=== PATIENT | male | born 1955 | race Caucasian/White ===

== ENCOUNTER 2020-03-12 22:42 | Emergency (ER) | payer OTHER, BC ==
[~2020-03-12] VITALS: Ht 180.3 cm; Wt 80.7 kg
[2020-03-12 23:09] LABS: URINE BILIRUBIN NEGATIVE (Negative); URINE BLOOD TRACE (Negative); URINE CLARITY CLOUDY; URINE COLOR YELLOW; URINE GLUCOSE-RANDOM* NEGATIVE (Negative); URINE KETONES NEGATIVE (Negative); URINE NITRITE-REFLEX NEGATIVE (Negative); URINE PROTEIN (DIPSTICK) NEGATIVE (Negative); URINE SPECIFIC GRAVITY 1.025 (1.005-1.035)
[2020-03-12 23:15] LABS: URINE LEUKOCYTES-REFLEX 2+ (Negative)
[2020-03-12 23:18] LABS: BACTERIA-REFLEX 1-9 Few /HPF (None Seen); CASTS None Seen /LPF (None Seen); CRYSTALS None Seen /LPF (None Seen); MUCUS 0-3 Light strn/LPF (None Seen); SQUAMOUS None Seen /LPF (0-3); URINE RBC 0-2 Rare /HPF (0-2); URINE WBC-REFLEX >25 Many /HPF (0-5)
[2020-03-13] MEDS ORDERED: PYRIDIUM200 MG PO (00:41)
[2020-03-13] MEDS ORDERED: AUGMENTIN 875-1 EACH PO (00:41)
[2020-03-13 00:42] VITALS: BP 121/72
== END 2020-03-13 01:14 | disposition home or self-care (01) ==
LOC: ER 22:42
PROVIDERS: Emergency Medicine
DX: N39.0 Urinary tract infection, site not specified (principal); R33.9 Retention of urine, unspecified